=== PATIENT | female | born 1970 | race Caucasian/White ===

== ENCOUNTER 2022-06-17 16:44 | Emergency (ER) | payer OTHER ==
[~2022-06-17] VITALS: Ht 162.6 cm; Wt 100.0 kg
[2022-06-17 16:59] VITALS: BP 150/85
[2022-06-17] MEDS ORDERED: QUET100T PO (17:06)
[2022-06-17] MEDS ORDERED: MELO-105 MT (18:58)
== END 2022-06-17 19:16 | disposition home or self-care (01) ==
LOC: ER 16:44
DX: M19.041 Primary osteoarthritis, right hand (principal)
CPT/HCPCS: 99281; 99283